=== PATIENT | female | born 1945 | race Caucasian/White ===

== ENCOUNTER 2020-05-06 13:37 | Outpatient (CLI) | payer MEDICARE ==
--- NOTE | 2020-05-06 16:00 | BD ---
BONE DENSITOMETRY: Date: 05/06/2020 HISTORY: Postmenopausal screening. FINDINGS: Lumbar Spine: BMD (g/cm2) L1 1.105 T-Score: 1.0 L2 1.207 T-Score: 1.6 L3 1.255 T-Score: 1.6 L4 1.493 T-Score: 3.9 Total 1.267 T-Score: 2.0 Left Femoral Neck: 0.715 T-Score: -1.2 Total Femur: 1.022 T-Score: 0.7 IMPRESSION: 1. Bone mineral density of the femoral neck indicate osteopenia. 2. Bone mineral density of the lumbar spine within normal range. 10 YEAR FRACTURE RISK: Major osteoporotic fracture: 16% Hip fracture: 6.2% POS: AGW
== END 2020-05-06 13:38 | disposition home or self-care (01) ==
LOC: BICMAMMO 13:37
PROVIDERS: ATTEND Family Medicine
DX: Z13.820 Encounter for screening for osteoporosis (principal); N95.1 Menopausal and female climacteric states; M85.852 Other specified disorders of bone density and structure, left thigh
CPT/HCPCS: 77080

== ENCOUNTER 2021-05-25 13:28 | Outpatient (CLI) | payer MEDICARE | END 2021-05-25 13:29 | disposition home or self-care (01) | LOC: BICMAMMO 13:28 | PROVIDERS: ATTEND Family Medicine | DX: Z12.31 Encounter for screening mammogram for malignant neoplasm of breast (principal) | CPT/HCPCS: 77063; 77067 ==

== ENCOUNTER 2023-03-22 13:28 | Outpatient (CLI) | payer MEDICARE | END 2023-03-22 13:29 | disposition home or self-care (01) | LOC: BICMAMMO 13:28 | PROVIDERS: ATTEND Family Medicine | DX: Z12.31 Encounter for screening mammogram for malignant neoplasm of breast (principal) | CPT/HCPCS: 77063; 77067 ==